=== PATIENT | female | born 1985 | race Two or more races ===

== ENCOUNTER 2019-09-03 05:15 | Observation (INO) | payer SELFPAY ==
[~2019-09-03] VITALS: Ht 152.4 cm; Wt 73.9 kg
[2019-09-03 05:51] VITALS: BP 121/77
== END 2019-09-03 06:33 | disposition home or self-care (01) ==
LOC: UNDOADMOB 05:15 → 4S 05:15 → UNDODISOB 06:33
PROVIDERS: ADMIT Obstetrics & Gynecology; ATTEND Obstetrics & Gynecology
DX: O36.8130 Decreased fetal movements, third trimester, not applicable or unspecified (principal); Z3A.34 34 weeks gestation of pregnancy
CPT/HCPCS: 81002; G0378